=== PATIENT | male | born 1980 | race Caucasian/White ===

== ENCOUNTER → 2016-11-26 | Outpatient (CLI) | payer BC ==
--- NOTE | 2016-11-26 19:28 | DI ---
LEFT FOREARM, 11/26/2016 1:18 PM: Clinical History: Strain of the muscles, fascia and tendons at the level of the left forearm. Previous Exam: None at this facility. AP and lateral views are submitted. There is no acute soft tissue, osseous, or joint abnormality. The re is a healed fracture of the distal third of the ulna with callus formation and some residual perio steal new bone formation. No fracture lucency is identified. Alignment and position are anatomic. The radius is normal. Reading: Healed fracture of the distal radius. There is no acute fracture or dislocation.
== END ==
LOC: RAD 13:20
DX: S56.812 Strain of other muscles, fascia and tendons at forearm level, left arm (principal)
CPT/HCPCS: 73090